=== PATIENT | male | born 1960 | race Caucasian/White ===

== ENCOUNTER → 2016-02-29 | Day surgery (SDC) | payer OTHER ==
--- NOTE | 2016-02-26 12:03 | History & Physical Pre-Op ---
General Information and HPI History of Present Illness: Laurent is a 55-year-old male with a recurrent complaint of a ganglion cyst to his left foot. The patient is status post resection with recurrence. The patient is undergone an extended course of conservative care, including shoe gear and activity modification, rest, immobilization course of NSAIDs. None of this is yielded him any significant relief. Patient presents today for preoperative surgical consultation. Allergies/Medications Allergies: Coded Allergies: NO KNOWN ALLERGIES (09/16/15) Home Med list Folic Acid 1 MG TABLET 1 TAB PO DAILY SUPPLEMENT (Reported) Methotrexate 2.5 MG TABLET 8 TAB PO QW ARTHRITIS (Reported) Past History Medical History Renal: CALCULI Surgical History Pertinent Surgical History: N Review of Systems Review of Systems: Unremarkable except for that noted in history present illness Exam & Diagnostic Data Physical Exam: Lungs clear bilaterally. Heart sounds rate and rhythm regular. Lower extremity physical exam demonstrates intact pedal pulses bilaterally. Both dorsalis pedis and posterior tibial arteries are palpable bilaterally. Patient without any sensory motor deficits. Deep tendon reflexes grossly intact. Patient noted to have same and pain with palpation to the plantar medial aspect of the left first metatarsophalangeal joint. There is fluctuance identified. There is a nodular lesion which is freely mobile within the soft tissues and nonpulsatile. Assessment/Plan Assessment/Plan: Recurrent soft tissue mass left foot. A lengthy discussion reviewing both surgical and conservative options was held the patient at bedside and the patient elects to go forward with surgery despite the risks. As Ranked By This Provider Problem List: 1. Neoplasm of unspecified behavior of bone, soft tissue, and skin Attending MD Review Statement Attending Statement Attending MD Statement: examined this patient
[~2016-02-29] VITALS: Ht 180.3 cm; Wt 74.8 kg
[~2016-02-29] MED LIST: DILAUDID2 M1 PO; FLOMAX0.4 M1 PO; FOLIC ACID1 M1 PO; IBUPROFEN200 M3 PO; METHOTREXATE2.5 M2 PO; ZOFRAN4 M2 SL
--- NOTE | 2016-03-05 12:44 | Operative Report ---
Operative/Inv Procedure Report Surgery Date: 02/29/16 Name of Procedure: 1 excision of expanding soft tissue mass left foot 2 closure of open surgical wound with local random advancement flap 3 intraoperative administration of ankle block anesthesia Pre-Operative Diagnosis: 1 painful and enlarging soft tissue mass left foot Post-Operative Diagnosis: Same Estimated Blood Loss: scant Surgeon/Adjunct Writing Instructor: JIMMY URBAN DPM Anesthesia: moderate sedation, block Operative/Procedure Note Note: After obtaining informed consent the patient was brought to the operating room and placed on the operating table in supine position. The patient isn't securely fastened to the operating table utilizing safety belt. After administration of IV sedation, 10 mL of 0.5% Marcaine plain was infiltrated about the patient's left ankle. 2 g of Ancef were delivered intravenously times one dose. A well-padded ankle tourniquet was placed about the patient's left lower extremity. The left foot and ankle then scrubbed prepped and draped in usual aseptic manner. The left lower extremity was elevated to examine to limb, which point the ankle tourniquet inflated to 250 mmHg. Attention was directed to the plantar aspect of the distal medial foot, where a nodular lesion was identified at the level of the metatarsophalangeal joint. A 6 cm curvilinear incision was incised overlying the lesion and deepened into the subtenons tissues. All vital neurovascular structures were identified protected. A fluid -filled cyst was identified extending off of a significantly frayed flexor hallucis longus tendon sheath. This was identified and freed of adjacent soft tissue attachments. It was then dissected and passed from the operative field. It was sent a specimen for pathologic inspection. Nipple was inspected for any remaining evidence of lesion and none was identified. A flap was then developed with release of the morning ligaments plantar medially and plantar laterally. The adjacent tissues were undermined, mobilized and advanced towards central aspect of the wound. The deep side flap was held with 3-0 Vicryl and the subtenons tissues were reapproximated 4-0 Vicryl. The skin edges were then reapproximated with 3-0 nylon. Incision was dressed with Xeroform 4 x 4's Kerlix and an Mohan wrap. The patient was noted to tolerate both procedure and anesthesia well and the patient was transported from the operating room to recovery with vital signs stable best assess intact to both the plantar medial plantar lateral flaps.
== END ==
LOC: STS 03:51
DX: D21.22 Benign neoplasm of connective and other soft tissue of left lower limb, including hip (principal); L40.50 Arthropathic psoriasis, unspecified
CPT/HCPCS: 88304; J1885; J2001; J2250

== ENCOUNTER 2017-08-18 06:58 | Emergency (ER) | payer OTHER ==
[~2017-08-18] VITALS: Ht 180.3 cm; Wt 72.6 kg
--- NOTE | 2017-08-18 07:57 | ED UPPER/LOWER EXTREMITY COMPL ---
History of Present Illness General Chief Complaint: Lower Extremity Problems Stated Complaint: "LT CALF SWOLLEN FOR 2 WKS" Source: patient, old records Exam Limitations: no limitations Vital Signs & Intake/Output Vital Signs & Intake/Output Vital Signs Date Time Temp Pulse Resp B/P B/P Pulse O2 O2 Flow FiO2 Mean Ox Delivery Rate 08/18 0718 98 08/18 0703 97.0 71 20 126/75 99 Room Air Allergies Coded Allergies: NO KNOWN ALLERGIES (09/16/15) Reconcile Medications Folic Acid 1 MG TABLET 1 TAB PO DAILY SUPPLEMENT (Reported) Ibuprofen 600 MG TABLET 1 TAB PO Q6P PRN pain with food Lidocaine (Lidoderm) 5 % ADH..PATCH 1 PAT TOP DAILY pain may wear up to 12 hours Methotrexate 2.5 MG TABLET 8 TAB PO QW ARTHRITIS (Reported) Triage Note: LEFT CALF SWOLLEN X 2 WEEKS. DENIES TRAUMA, DENIES RECENT TRAVEL. Triage Nurses Notes Reviewed? yes Onset: 2 weeks Duration: week(s):, constant, continues in ED Timing: recent history Severity: mild, moderate Pain/Injury Location: Left: Leg (calf). Method of Injury: unknown Modifying Factors: Worsens With: movement. Associated Symptoms: swelling, GCS 15 since HPI: 2 weeks prior to admission patient complains of left calf swelling and pain worse with ambulation. He denies fever chills nausea vomiting diarrhea abdominal pain chest pain shortness breath headache dysuria rash bleeding prolonged immobilization surgery travel. Past History Travel History Traveled to [place] past 21 day No Medical History Any Pertinent Medical History? see below for history Renal: CALCULI Surgical History Surgical History: N Psychosocial History What is your primary language Upper Sorbian Tobacco Use: Never used ETOH Use: occasional use Illicit Drug Use: denies illicit drug use Family History Hx Contributory? No Review of Systems Review of Systems Constitutional: Reports: no symptoms. EENTM: Reports: no symptoms. Respiratory: Reports: no symptoms. Cardiovascular: Reports: no symptoms. Gastrointestinal/Abdominal: Reports: no symptoms. Genitourinary: Reports: no symptoms. Musculoskeletal: Reports: see HPI, muscle pain, muscle stiffness. Skin: Reports: no symptoms. Neurological/Psychological: Reports: no symptoms. Hematologic/Endocrine: Reports: no symptoms. Immunological: Reports: no symptoms. All Other Systems: Reviewed and Negative Physical Exam Physical Exam General Appearance: well developed/nourished, alert, awake, anxious, mild distress Head: atraumatic, normal appearance Eyes: Bilateral: normal appearance, PERRL, EOMI. Ears, Nose, Throat: normal pharynx, normal ENT inspection, hearing grossly normal Neck: normal inspection, supple, full range of motion Cardiovascular/Respiratory: normal breath sounds, normal peripheral pulses, regular rate/rhythm, no respiratory distress Peripheral Pulses: 4+ carotid (R), 4+ carotid (L) Back: normal inspection, normal range of motion Shoulder Left: normal range of motion, normal inspection Shoulder Right: normal range of motion, normal inspection Elbow Left: normal range of motion, normal inspection Elbow Right: normal range of motion, normal inspection Hand Left: normal inspection, normal range of motion Hand Right: normal inspection, normal range of motion Upper Extremity Reflexes: 2+: bicep (R), bicep (L). Leg Left: normal range of motion, swelling, tenderness, soft tissue tenderness Leg Right: normal range of motion, normal inspection Hip Left: normal range of motion, normal inspection Hip Right: normal range of motion, normal inspection Knee Left: normal range of motion, normal inspection Knee Right: normal range of motion, normal inspection Foot Left: normal inspection, normal range of motion Foot Right: normal inspection, normal range of motion Lower Extremity Reflexes: 2+: knee (R), knee (L). Neurologic/Tendon: normal sensation, normal motor functions, normal tendon functions Skin: intact, normal color, warm/dry Lymphatic: no anterior cervical [place] Progress Differential Diagnosis: contusion, DVT Plan of Care: Orders Procedure Date/time Status US-DUPLEX VENOUS EXTREM UNI 08/18 729 Active Diagnostic Imaging: Viewed by Me: Ultrasound. Discussed w/RAD: Ultrasound. Radiology Impression: Complex appearance of Ferguson's cyst which extends along the medial gastrocnemius of the proximal calf. If patient has knee pain, consider additional correlation with radiographs of the knee to determine if there is arthritic deformity. Departure Departure Time of Disposition: 936 Disposition: HOME OR SELF CARE Condition: Stable Clinical Impression Primary Impression: Ferguson's cyst, ruptured Referrals: Eder Lynch DO (PCP/Family) Departure Forms: Customer Survey General Discharge Information Prescriptions: Current Visit Scripts Lidocaine (Lidoderm) 1 PAT TOP DAILY #30 PAT may wear up to 12 hours Ibuprofen 1 TAB PO Q6P PRN pain #50 TAB with food
[2017-08-18] MEDS ORDERED: LIDODERM1 EACH TOP (09:41)
[2017-08-18] MEDS ORDERED: IBUPROFEN600 M1 PO (09:41)
--- NOTE | 2017-08-18 10:31 | ULTRASOUND REPORT ---
EXAMINATION: US TRIPLEX LOWER EXTREMITY, LEFT CLINICAL INFORMATION: Left calf pain and swelling. COMPARISON: None TECHNIQUE: Color-flow triplex imaging with spectral analysis and compression Doppler were performed on the left lower extremity. FINDINGS: The left common femoral vein is compressible and exhibits a normal phasic waveform; this suggests that the iliac veins are widely patent above. Within the proximal thigh, the visualized profunda femoris vein is patent. The examined greater saphenous vein and saphenofemoral junction are normal. Superficial femoral vein is patent in the proximal, mid and distal thigh. Popliteal vein appears normal to the level of the trifurcation. On haro scale and color Doppler images, the visualized calf veins are grossly patent. Within the popliteal fossa, a Ferguson's cyst containing internal debris, thickened synovium and/or septations measures approximately 8.2 x 3.2 x 4.6 cm. The cyst extends into the proximal calf along the surface of the medial gastrocnemius. IMPRESSION: - No evidence of deep vein thrombosis in the left lower extremity. - Complex appearance of Ferguson's cyst which extends along the medial gastrocnemius of the proximal calf. If patient has knee pain, consider additional correlation with radiographs of the knee to determine if there is arthritic deformity.
[2017-08-18 10:37] VITALS: BP 122/68
== END 2017-08-18 10:37 ==
LOC: ERH 06:58
DX: M66.0 Rupture of popliteal cyst (principal)